=== PATIENT | male | born 2000 | race Caucasian/White ===

== ENCOUNTER 2023-05-27 14:48 | Emergency (ER) | payer BC ==
[2023-05-27] MEDS ORDERED: Bupivacaine 0.25% 10 ML VIAL ONE (16:57)
[2023-05-27] MEDS ORDERED: Boostrix 0.5 ML (Tdap) VIAL (>/=7 yrs of age) ONE (16:57)
[2023-05-27] MEDS ORDERED: Bacitracin 1 PK ONE (17:39)
== END 2023-05-27 17:46 | disposition home or self-care (01) ==
LOC: ERS 14:48
DX: S61.011A Laceration without foreign body of right thumb without damage to nail, initial encounter (principal); E10.9 Type 1 diabetes mellitus without complications; W31.9XXA Contact with unspecified machinery, initial encounter
CPT/HCPCS: 12002; 90471; 90715; S0020

== ENCOUNTER 2023-06-15 15:59 | Outpatient (CLI) | payer BC ==
[2023-06-15 17:32] LABS: #Eosinphils 0.2 10x3/uL (0.0-0.5); #Monocytes 0.7 10x3/uL (0.0-1.1); %Basophils 0.6 % (0.0-2.0); %Eosinophils 2.5 % (0.0-6.0); %Lymphocytes 28.4 % (18.0-47.0); %Monocytes 9.9 % (0.0-10.0); %Neutrophils 58.2 % (40.0-75.0); Hematocrit 38.6 % (38.8-50.0); Mean Corpuscular HGB CONC 28.5 g/dL (32.0-36.0); Mean Corpuscular Hemoglobin 19.6 pg (27.0-33.0); Mean Corpuscular Volume 68.7 fl (81.2-95.1); Mean Platelet Volume 10.6 fl (7.4-10.4); Platelet Count 263 10x3/uL (150-450); RBC Distribution Width 16.8 % (11.5-14.5); Red Blood Cell (RBC) Count 5.62 10x6/uL (4.32-5.72); White Blood Cell (WBC) Count 6.9 10x3/uL (3.5-10.5)
[2023-06-15 17:58] LABS: Hypochromia SLIGHT = 6-15 cells (100X) (0-5/hpf); Microcytosis MODERATE=15-30 cells (100X) (0-5/hpf)
[2023-06-15 17:59] LABS: Stomatocytes SLIGHT = 2-5 cells (100X) (0-1/hpf)
[2023-06-15 18:00] LABS: Ovalocytes SLIGHT = 2-5 cells (100X) (0-1/hpf); Polychromasia SLIGHT = 2-3 cells (100X) (0-2/hpf)
== END 2023-06-15 16:00 | disposition home or self-care (01) ==
LOC: LABBT 15:59
PROVIDERS: ATTEND Orthopaedic Surgery Hand Surgery
DX: Z01.818 Encounter for other preprocedural examination (principal); S61.411D Laceration without foreign body of right hand, subsequent encounter
CPT/HCPCS: 85025; 93005; 93010